=== PATIENT | male | born 1980 | race Caucasian/White ===

== ENCOUNTER 2018-05-05 15:46 | Outpatient (CLI) | payer BC ==
[~2018-05-05 15:46] MED LIST: ALBU8HFA INH; PRE5T PO
[2018-05-05 16:47] LABS: BASOPHILS # (AUTO) 0.1 X10'3 (0-0.2); BASOPHILS % (AUTO) 0.6 % (0-1); EOSINOPHILS % (AUTO) 0.1 % (0-6); HEMATOCRIT 47.5 % (42.0-52.0); HEMOGLOBIN 16.3 g/dl (14.0-17.9); LYMPHOCYTES # (AUTO) 1.8 X10'3 (1.1-4.8); LYMPHOCYTES % (AUTO) 10.6 % (21-51); MEAN CORPUSCULAR HEMOGLOBIN 32.3 PG (27.0-31.0); MEAN CORPUSCULAR HGB CONC 34.4 g/dL (33.0-36.5); MEAN CORPUSCULAR VOLUME 93.9 FL (78-98); MEAN PLATELET VOLUME 7.6 FL (7.4-10.4); MONOCYTES # (AUTO) 1.1 X10'3 (0-0.9); MONOCYTES % (AUTO) 6.2 % (2-12); NEUTROPHILS % (AUTO) 82.5 % (42-75); PLATELET COUNT 297 X10'3 (140-440); RED BLOOD COUNT 5.06 X10'6 (4.70-6.10); RED CELL DISTRIBUTION WIDTH 15.6 % (11.5-14.5); WHITE BLOOD COUNT 16.9 X10'3 (4.5-11.0)
[2018-05-05 16:53] LABS: ALANINE AMINOTRANSFERASE 97 U/L (12-78); ALBUMIN 3.7 G/DL (3.4-5.0); ALBUMIN/GLOBULIN RATIO 0.9 (1.1-1.5); ALKALINE PHOSPHATASE 82 IU/L (46-116); ANION GAP 12 (8-16); ASPARTATE AMINO TRANSFERASE 22 U/L (10-37); BILIRUBIN,TOTAL 0.5 MG/DL (0.1-1.0); BLOOD UREA NITROGEN 21 MG/DL (7-18); BUN/CREATININE RATIO 21.6 (5.4-32.0); CALCIUM 9.9 MG/DL (8.5-10.1); CHLORIDE 102 MMOL/L (99-107); CREATININE 0.97 MG/DL (0.60-1.10); GLUCOSE 118 MG/DL (70-104); POTASSIUM 3.6 MMOL/L (3.5-5.1); SODIUM 138 MMOL/L (135-145); TOTAL CARBON DIOXIDE 23.8 MMOL/L (24-32); TOTAL PROTEIN 7.7 G/DL (6.4-8.2); eGFR 86 ML/MIN
[2018-05-05 17:05] LABS: INR 0.9 INR; PROTHROMBIN TIME 9.4 SECONDS (9.0-12.0)
== END 2018-05-05 23:59 | disposition home or self-care (01) ==
LOC: LAB 15:46
PROVIDERS: ATTEND Otolaryngology
DX: D69.1 Qualitative platelet defects (principal); J45.909 Unspecified asthma, uncomplicated
CPT/HCPCS: 36415; 80053; 85025; 85576; 85610

== ENCOUNTER 2019-10-22 11:50 | Day surgery (SDC) | payer OTHER, MEDICAID ==
[~2019-10-22 11:50] MED LIST changes: +LORazepam 2 mg/ml vial IV ONE; +heparin 10,000 units/1 ML INJ IV ONE; +labetalol 20mg/4ml (5mg/ml) syringe IV ONE; +labetalol 20mg/4ml (5mg/ml) syringe IV PRN; +morphine 10mg/ml inj. IV ONE; +morphine 5 MG/ML injection IM ONE; +morphine 5 MG/ML injection IV PRN
[2019-10-22] MEDS ORDERED: ondansetron/PF 4mg/2ml inj IV ONE (11:55)
[2019-10-22] MEDS ORDERED: heparin 10,000 units/1 ML INJ IV ONE ×3 (12:10→12:35)
[2019-10-22] MEDS: LORazepam 2 mg/ml vial IV PRN ×4 (12:36→15:02)
[2019-10-22] MEDS: morphine 10mg/ml inj. IV PRN ×3 (15:00→15:02)
--- NOTE | 2019-10-22 15:11 | NUR ---
Patient arrived at 1126. placed on monitor all vitals stable. RT at bedside, patient placed on ventilator. Family in waiting room with manager social. patient extubated to comfort at 1300 with family at bedside. Patient at 1307; PA declared expiration at 1312 and notified MD. Patient to OR.
== END 2019-10-22 13:07 | disposition expired ==
LOC: OR 11:50
PROVIDERS: ATTEND Physician Assistant
DX: J45.52 Severe persistent asthma with status asthmaticus (principal); Z52.89 Donor of other specified organs or tissues; I46.9 Cardiac arrest, cause unspecified; Z79.899 Other long term (current) drug therapy; G93.1 Anoxic brain damage, not elsewhere classified; J96.01 Acute respiratory failure with hypoxia; Z87.891 Personal history of nicotine dependence
CPT/HCPCS: 94002; 94760; J1644; J2060; J2270; J2405; J3490